=== PATIENT | male | born 1955 | race Caucasian/White ===

== ENCOUNTER 2016-11-21 11:08 | Inpatient (IN) | payer OTHER ==
[2016-11-21 11:33] LABS: #Eosinphils 0.2 thou/uL (0.0-0.7); #Lymphocytes 1.8 thou/uL (1.20-3.40); #Monocytes 0.9 thou/uL (0.11-0.59); #Neutrophils 6.2 thou/uL (1.40-6.50); %Basophils 0.4 % (0.0-1.0); %Eosinophils 2.4 % (0.0-10.0); %Lymphocytes 19.8 % (21.0-51.0); %Monocytes 9.6 % (0.0-10.0); Hematocrit 44.8 % (42.0-52.0); Red Blood Cell (RBC) Count 4.72 mill/uL (4.70-6.10); White Blood Cell (WBC) Count 9.1 thou/uL (4.8-10.8)
--- NOTE | 2016-11-21 11:51 | RAD ---
PORTABLE CHEST ONE VIEW: Date: 11-21-16 Time: 11:10 a.m. History: Shortness of breath, chest pain. FINDINGS: The heart size is borderline. The lungs are expanded without focal areas of consolidation, pneumotho rax, or pleural effusions. IMPRESSION: No radiographic evidence of acute cardiopulmonary process. POS: [facility]
[2016-11-21 11:52] LABS: ALT (SGPT) 64 U/L (8-55); AST (SGOT) 36 U/L (5-34); Alkaline Phosphatase 107 U/L (40-150); Anion Gap 14 mmol/L (10-20); BUN (Urea Nitrogen) 19 mg/dL (8.4-25.7); Bilirubin, Total 0.5 mg/dL (0.2-1.2); CK (CPK) 99 U/L (30-200); Calc. Creatinine Clearance 0 mL/min (70-130); Calcium 9.4 mg/dL (7.8-10.44); Carbon Dioxide 24 mmol/L (23-31); Chloride 107 mmol/L (98-107); Estimated GFR-MDRD 89; Globulin 3.5 g/dL (2.4-3.5); Protein, Total 7.3 g/dL (5.8-8.1)
[2016-11-21 11:57] LABS: Troponin I 0.084 ng/mL (< 0.028)
[2016-11-21] MEDS ORDERED: Acetaminophen 325 MG TAB PO PRN (13:05)
--- NOTE | 2016-11-21 13:23 | HP ---
REASON FOR ADMISSION: Atypical chest pain, rule out ACS. HISTORY OF PRESENTING ILLNESS: The patient gives history of waking up on Sunday morning, not feeling good. He was feeling clammy and slept all through the day. This morning when he woke up, he felt the same way and felt even more weaker, clammy, sweating and was shaky. He got concerned, hence came to emergency room. No complaints of cough or fever. No complaints of urinary frequency or urgency. No complaints of palpitations or PND. The patient states he snores a lot and in fact his has told that he has stopped breathing in between which appears to be apneic spells. PAST MEDICAL AND SURGICAL HISTORY: History of Cpwcqox-Bzlpo-Mzxjk disease with bilateral ankle surgeries done by Dr. Vera, dyslipidemia, not on any medications. CURRENT MEDICATIONS: None. ALLERGIES: Allergic to CODEINE and PENICILLIN. PERSONAL HISTORY: Does not abuse alcohol or drugs. No history of smoking. FAMILY HISTORY: Mother is living and is 91 years old. She has got dyslipidemia. Father of Parkinson's and its complications at the age of 86 years. REVIEW OF SYSTEMS: The following complete review of systems was negative, unless otherwise mentioned in the HPI or below: Constitutional: Weight loss or gain, ability to conduct usual activities. Skin: Rash, itching. Eyes: Double vision, pain. ENT/Mouth: Nose bleeding, neck stiffness, pain, tenderness. Cardiovascular: Palpitations, dyspnea on exertion, orthopnea. Respiratory: Shortness of breath, wheezing, cough, hemoptysis, fever or night sweats. Gastrointestinal: Poor appetite, abdominal pain, heartburn, nausea, vomiting, constipation, or diarrhea. Genitourinary: Urgency, frequency, dysuria, nocturia. Musculoskeletal: Pain, swelling. Neurologic/Psychiatric: Anxiety, depression. Allergy/Immunologic: Skin rash, bleeding tendency. PHYSICAL EXAMINATION: GENERAL: The patient is a 61-year-old male who is currently not in any acute distress. VITAL SIGNS: Blood pressure 160/84 on arrival, pulse 92 per minute, respiratory rate 20 per minute, temperature 98 degrees Fahrenheit, saturating 91 % on room air. NECK: Supple, no elevated JVD. EYES: Extraocular muscles intact. Pupils reacting to light. ORAL CAVITY: Mucous membranes are moist. No exudates or congestion. CARDIOVASCULAR SYSTEM: S1 and S2 heard. Regular rhythm. RESPIRATORY SYSTEM: Air entry 1+ bilateral. No rales, rhonchi or wheezes. ABDOMEN: Soft, bowel sounds heard. No tenderness, rigidity or guarding. EXTREMITIES: No peripheral edema or calf tenderness. VASCULAR SYSTEM: Peripheral pulses 1+ bilateral. No ischemic ulcerations or gangrene. CENTRAL NERVOUS SYSTEM: No gross focal deficits seen. Patient is alert, awake , oriented x3. PSYCHIATRIC SYSTEM: The patient's mood is euthymic. No hallucinations or delusions. X-RAY FINDINGS AND LABORATORY DATA: Chest x-ray done shows no acute cardiopulmonary abnormalities. EKG done shows normal sinus rhythm at 91 beats per minute. There is poor R-wave progression. H\T\H 15 and 44, platelet count is 150, MCV is 95. White count of 9 with 67% neutrophils. Electrolytes are stable. BUN 19, creatinine 0.8, glucose 106, AST 36, ALT 64, alkaline phosphatase 107, troponin I 0.08, CK-MB 2.7, lipase is 30. CLINICAL IMPRESSION AND PLAN: The patient will be under observation on telemetry for atypical chest pain, rule out acute coronary syndrome. Also, his symptoms appear to be likely related to obstructive sleep apnea. He has indeterminate troponin, the first set and we will see the trending of troponin the next 2 sets. If his troponins trend less than 1, we will proceed with a nuclear stress test. We will gently hydrate him with normal saline at 50 mL per hour. The patient will be on aspirin full dose along with a small dose of Lopressor. He will likely need outpatient sleep study. The patient does not have a primary care physician and I have counseled him to see a primary care doctor and get a referral for sleep study. SALO
[2016-11-21 14:05] VITALS: BMI 33.0
[2016-11-21 14:58] LABS: Troponin I 0.077 ng/mL (< 0.028)
[2016-11-21] MEDS: Sodium Chloride 0.9% 1,000 ML IV SCH (16:07)
[2016-11-21 18:08] LABS: Troponin I 0.052 ng/mL (< 0.028)
[2016-11-21] MEDS: Metoprolol Tartrate 25 MG TAB PO SCH (20:53)
[2016-11-22 04:49] LABS: #Eosinphils 0.2 thou/uL (0.0-0.7); #Lymphocytes 1.9 thou/uL (1.20-3.40); #Monocytes 0.7 thou/uL (0.11-0.59); #Neutrophils 4.9 thou/uL (1.40-6.50); %Basophils 0.3 % (0.0-1.0); %Eosinophils 2.4 % (0.0-10.0); %Lymphocytes 24.3 % (21.0-51.0); %Monocytes 9.5 % (0.0-10.0); Hematocrit 42.3 % (42.0-52.0); Mean Platelet Volume 8.2 fL (7.4-10.4); Red Blood Cell (RBC) Count 4.37 mill/uL (4.70-6.10); White Blood Cell (WBC) Count 7.7 thou/uL (4.8-10.8)
[2016-11-22 05:20] LABS: Anion Gap 13 mmol/L (10-20); BUN (Urea Nitrogen) 19 mg/dL (8.4-25.7); Calc. Creatinine Clearance 144 mL/min (70-130); Calcium 9.2 mg/dL (7.8-10.44); Carbon Dioxide 25 mmol/L (23-31); Chloride 106 mmol/L (98-107); Cholesterol 220 mg/dl (< 200 Desired); Estimated GFR-MDRD Greater than 90; LDL Cholesterol, Calculated 169 mg/dL
--- NOTE | 2016-11-22 08:16 | PDOC.PN ---
- Subjective Encounter Start Date: 11/22/16 Encounter Start Time: 08:13 Subjective: Chest pain resolved -: No f/c -: No n/v - Objective Resuscitation Status: Resuscitation Status FULL:Full Resuscitation MAR Reviewed: Yes Vital Signs & Weight: Vital Signs (12 hours) Temp Pulse Resp BP Pulse Ox 11/22/16 07:32 97.4 F L 69 20 122/74 94 L 11/22/16 04:00 98.8 F 82 24 H 130/66 91 L 11/21/16 23:26 97.5 F L 76 20 124/73 91 L 11/21/16 20:55 98.3 F 80 20 Weight Weight 243 lb 6.4 oz I&O: 11/21/16 11/22/16 11/23/16 06:59 06:59 06:59 Intake Total 2104 Balance 2104 Result Diagrams: 11/22/16 04:25 11/22/16 04:25 Phys Exam - Physical Examination Constitutional: NAD HEENT: moist MMs, sclera anicteric Neck: no nodes, no JVD Respiratory: no wheezing, no rales, clear to auscultation bilateral Cardiovascular: RRR, no significant murmur Gastrointestinal: soft, non-tender, positive bowel sounds Neurological: non-focal Psychiatric: normal affect, A&O x 3 Dx/Plan (1) Chest pain Code(s): R07.9 - CHEST PAIN, UNSPECIFIED Status: Acute - Plan Chest pain * Indeterminant cardiac enzyme elevation on first draw (trended down on 2 subsequent draws) * ECHO: EF 50-55%, Mild MR, Severe TR (needs outpt f/u) * check Stress test today * check labs in AM Suspected sleep apnea * will need outpt polysomnogrophy to confirm (will defer to PCP)
[2016-11-22] MEDS ORDERED: ISOVUE-370 76%-LOCM 1 ML ONE (08:29)
--- NOTE | 2016-11-22 11:36 | NM ---
CARDIAC SPECT: CLINICAL HISTORY: 61-year-old male with chest pain, dyslipidemia. TECHNIQUE: A myocardial perfusion scan was performed using the single isotope one day protocol with technetium- 99m sestamibi. 10 mCi were injected intravenously for the rest exam followed by 32 mCi for the stres s exam. Pharmacologic stress with Adenosine was monitored and interpreted by Ena Sandoval NP. FINDINGS: Homogeneous tracer distribution is seen in the myocardial segments on stress and rest images without fixed or reversible defects. GATED SPECT LVEF: 62%. WALL MOTION EXAM: Normal. IMPRESSION: Normal myocardial perfusion scan. POS: [facility]
[2016-11-22 13:28] LABS: Mode NC; Modified Allen's Test NOT DONE; Oxyhemoglobin 86.4 % (94.0-97.0); Sodium 138 mmol/L (135-148); Vent NO
[2016-11-22] MEDS ORDERED: Enoxaparin Sodium 120 MG/0.8 ML SYRINGE SC SCH (14:15)
[2016-11-22] MEDS ORDERED: Sodium Chloride 0.9% 500 ML IV SCH (14:30)
[2016-11-22] MEDS: Aspirin 325 MG TAB PO SCH (14:51)
[2016-11-22] MEDS ORDERED: Enoxaparin Sodium 30 MG/0.3 ML SYRINGE IVP SCH (14:53)
[2016-11-22] MEDS ORDERED: Enoxaparin Sodium 30 MG/0.3 ML SYRINGE ONE (14:53)
--- NOTE | 2016-11-22 14:54 | CT ---
CT BRAIN WITHOUT CONTRAST: HISTORY: Syncope. Altered mental status. Hypotension. FINDINGS: No evidence of acute infarct, hemorrhage, midline shift, or abnormal extraaxial fluid collections ar e seen. The ventricular size is normal, and the basilar cisterns are patent. The bony calvarium is intact. The visualized paranasal sinuses are well aerated. IMPRESSION: No CT evidence of acute intracranial process. POS: [facility]
[2016-11-22] MEDS: Sodium Chloride 0.9% 1,000 ML IV SCH ×3 (14:57→20:30)
[2016-11-22] MEDS: Metoprolol Tartrate 25 MG TAB PO SCH (14:59)
--- NOTE | 2016-11-22 14:59 | CT ---
CT PULMONARY ANGIO WITH CONTRAST: HISTORY: Shortness of breath. Hypotension. Syncope. TECHNIQUE: Multiple axial tomograms obtained through the chest with IV enhancement with pulmonary angio protoco l with multiplanar reconstruction and 3D post processing. FINDINGS: There are extensive bilateral pulmonary emboli. the largest emboli are seen in both main pulmonary outflow tracts. Emboli extend into all levels of both lungs. The lung schuster show some patchy infiltrate in the left upper lobe and also some patchy infiltrate i n the right lower lobe. No effusion. The mediastinum is otherwise unremarkable. Images through th e upper abdomen are unremarkable. IMPRESSION: 1. Extensive bilateral pulmonary emboli. 2. Patchy alveolar infiltrate in the left upper lobe and right lower lobe and, to a lesser degree, in the right upper lobe. These findings were discussed with Dr. Swenson. CODE CR POS: [facility]
--- NOTE | 2016-11-22 15:30 | CON ---
DATE OF CONSULTATION: 11/22/2016 REASON FOR CONSULTATION: Shortness of breath. HISTORY OF PRESENT ILLNESS: I was consulted by the Hospitalist Service to see this patient is a 61- year-old male who has been on the observation unit for rule out CA workup. He apparently had a stre ss test earlier today and was about to go home. He got up to the bathroom, became faint, almost pas sed out, turned zee. I was called by the charge nurse and he was running the code [employer] who reques marla direction. She felt that the patient probably had a pulmonary embolism. The patient was transp orted for CT head and a CT pulmonary angiogram of the chest. CT pulmonary angiogram showed diffuse bilateral pulmonary emboli. The patient was brought to the CCU. He was immediately given 1 mg/kg o f Lovenox subcutaneously, a bolus of 500 mL of normal saline for a blood pressure 91/57, and 100% ox ygen. He is now doing better with a pulse of 93, blood pressure 116/86, and O2 sat of 96% with resp iratory rate of 23. PAST MEDICAL HISTORY: Uxsnnzg-Vtggl-Zuuse disease, hyperlipidemia. 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 ALLERGIES: CODEINE and PENICILLIN. SOCIAL HISTORY: He is a nonsmoker, does not consume alcohol. He works in [employer]. FAMILY MEDICAL HISTORY: Remarkable for a sister who had a pulmonary embolism. Also, father of Parkinson's disease. REVIEW OF SYSTEMS: He has had chest pain. He has had shortness of breath. He has had some tinglin g sensation in his legs. He does not noted any previous trauma to his legs. PHYSICAL EXAMINATION: VITAL SIGNS: Pulse currently 93, blood pressure 116/86, O2 sat 96%, respiratory rate 25. He is res ting comfortably in supine position at this time. HEENT: Pupils react. Sclerae are anicteric. Oropharynx is clear. NECK: Without adenopathy or JVD. CARDIAC: S1, S2 is regular. There is no audible murmur. LUNGS: Clear to auscultation. No wheezing or rhonchi. ABDOMEN: Soft, mildly obese. EXTREMITIES: No clubbing, cyanosis. Fused ankles are noted. LABORATORY DATA: White blood cell count 7.7, hematocrit 42.3, platelet count 138. pH 7.38, pCO2 of 26, pO2 of 53 on nasal cannula 28%. Sodium 139, potassium 4.5, chloride 106, CO2 of 25, BUN 19, cr eatinine 0.8, glucose 115. CT pulmonary angiogram was reviewed. Results are as noted above. Head CT did not show any acute fi ndings. ASSESSMENT: 1. Massive pulmonary embolism with borderline low blood pressure, which was responsive to fluids. 2. History of Hqfgvar-Xbhsu-Rkocs disease. PLAN: There is no immediate contraindication for thrombolysis, if it should be needed. Currently, the patient is hemodynamically stable after fluid bolus and he has received subcutaneous Lovenox and is not having any hypoxemia that is refractory to supplemental oxygen. I told him that would be th e course, we will continue at the current time. However, he understands that he gets worse, we woul d have to intervene with thrombolytics. We discussed the fact that the thrombolytics could cause a stroke, although the odds of that would be very small. The patient will remain in the CCU overnight on strict bed rest. First some anticoagulants have bee n given. He will be put on Protonix for GI prophylaxis. I have spoken to his . Forty-five minutes critical care time was spent with the patient.
--- NOTE | 2016-11-22 23:41 | CON ---
CARDIOLOGY CONSULTATION NOTE DATE OF CONSULTATION: 11/22/2016 INDICATION FOR CONSULTATION: Chest pain and near syncope. HISTORY OF PRESENT ILLNESS: Mr. Tyler is very pleasant 61-year-old gentleman who was admitted t o the hospital through the emergency room yesterday. He had been complaining of some chest tightnes s. He underwent evaluation from a cardiac standpoint and was found to have a negative cardiac study . He had no evidence of ischemia. He then was planning to be discharged, he went to bathroom, he t hought he had a bowel movement. He did have some small amount of diarrhea and became very short of breath and felt weak. He then tried to get up and get back to the bed and almost collapsed. On fur ther evaluation, it is indicated the patient has pulmonary emboli. We were not even asked to see th e patient, I believe prior to them realizing the patient had PEs. He has had no previous cardiac hi story that he is aware of. He denied any chest pains except for the fullness, which he experiences now which most likely is associated with the pulmonary emboli. The emboli are of yet uncertain etio logy. He denied any long trips or any sitting for any length of time in activity and has no history of previous cardiac, pulmonary or pulmonary embolus or malignancies in the past. At this time, he is more comfortable. He is in the Intensive Care Unit and is on oxygen. He has been started on Zaid enox. His heart rate is 91. His vital signs are otherwise stable. O2 saturation is about 98% on 2 liters of oxygen. PAST MEDICAL AND SURGICAL HISTORY: Positive for Cvhxoe-Jrlgs-Adqob syndrome and he has had ankle goodwin rgeries, both by Dr. Vera in the past. Otherwise, he has been very healthy patient. ALLERGIES: PENICILLIN and CODEINE. SOCIAL HISTORY: He is . He works as a [employer]. He has no significant alcohol use. He do es not smoke. FAMILY HISTORY: He does have a sister who had pulmonary embolus, also father had Parkinson disease and multiple members who have had problems with orthopedic problems, most likely associated also wit h Fqyxsyn-Ymhom-Lerbn syndrome. MEDICATIONS: He was on no medications prior to being admitted to the hospital. REVIEW OF SYSTEMS: His 12-point review of systems are unremarkable except for chest fullness and so me shortness of breath. Otherwise, he denies any complaints. PHYSICAL EXAMINATION: GENERAL: Reveals a well-developed, well-nourished gentleman. VITAL SIGNS: Blood pressure is 145/88, heart rate is 89 and shows a sinus rhythm. He is afebrile. Respiratory rate is about 20 per minute, O2 saturations are stable and is noted between 90% to 98%. HEENT: Shows the head to be normocephalic and atraumatic. Carotid pulses are present. There were no bruits noted. There is no JVD. CHEST: Clear to auscultation without rales, rhonchi or wheezing. CARDIOVASCULAR: Exam reveals a regular rate and rhythm at this time with a normal S1 and S2. I can not hear any significant murmurs, heaves, thrills, bruits or rubs. ABDOMEN: Exam shows obesity with positive bowel sounds. No organomegaly or masses are noted. Femo ral pulses are present. EXTREMITIES: Showed no clubbing or cyanosis. He does have some discoloration of the lower extremit ies and also some well-healed surgical incision from the ankle area due to previous surgery. His pu lses are present. NEUROLOGICAL: He appears to be fully intact. I cannot elicit any gross focal motor deficits at th is time. SKIN: Warm and dry. The feet, however, are cool. 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 LABORATORY AND IMAGING DATA: His EKG shows a normal sinus rhythm with no acute changes. Laboratory data shows a hemoglobin of 14.4 with a WBC of 7.7. His blood sugar was 106 and increased up to 115 since he has been admitted. His electrolytes otherwise were stable. Troponin I on admission was 0 .084 then decreased down to 0.07 and then down to 0.05. MBs were negative. Triglycerides are 220. LDL was elevated at 169. The CTA of the chest indicates extensive bilateral pulmonary emboli and h timothy has been started on Lovenox both subcutaneous and he was given IV dose. IMPRESSION AND PLAN: 1. Acute pulmonary embolus of uncertain etiology. He is being dealt with by the electrical prospecting observer. 2. Elevated cholesterol level. We will suggest he start on some type of statins. 3. History of chest discomfort, which most likely is associated with the pulmonary emboli. 4. Lrlhusf-Zftqs-Qorzo syndrome. This also appears to be under good control at this time. We will be more than happy to continue to follow the patient with you, but at this time, his overall cardia c status appears to be stable except for the problem associated with the pulmonary emboli. I would agree with the present management and no further cardiac workup is indicated at this time.
[2016-11-23] MEDS: Enoxaparin Sodium 100 MG/ML SYRINGE SC SCH ×2 (01:25→14:18)
[2016-11-23] MEDS: Enoxaparin Sodium 30 MG/0.3 ML SYRINGE SC SCH ×2 (01:26→14:19)
[2016-11-23] MEDS: Sodium Chloride 0.9% 1,000 ML IV SCH ×3 (05:32→18:53)
[2016-11-23 05:36] LABS: Hematocrit 40.6 % (42.0-52.0); Mean Platelet Volume 9.1 fL (7.4-10.4); Neutrophil 67 % (42-75); Red Blood Cell (RBC) Count 4.18 mill/uL (4.70-6.10); White Blood Cell (WBC) Count 7.8 thou/uL (4.8-10.8)
[2016-11-23 05:50] LABS: BUN (Urea Nitrogen) 17 mg/dL (8.4-25.7); Calc. Creatinine Clearance 166 mL/min (70-130); Calcium 8.8 mg/dL (7.8-10.44); Chloride 108 mmol/L (98-107); Estimated GFR-MDRD Greater than 90; Magnesium 2.2 mg/dL (1.6-2.6)
[2016-11-23 05:57] LABS: Anion Gap 14 mmol/L (10-20)
[2016-11-23 05:58] LABS: Carbon Dioxide 22 mmol/L (23-31)
--- NOTE | 2016-11-23 07:56 | PRG ---
DATE OF SERVICE: 11/23/2016 Thirty minutes critical care time. The patient feels better today. He is still quite hypoxic requiring 5 liters O2 to maintain sats 93 %. PHYSICAL EXAMINATION: VITAL SIGNS: Pulse is 82, blood pressure 112/60, temperature 98.7, total intake for 24 hours, 2269, output 725. HEENT: Unremarkable. NECK: No JVD. CHEST: Clear without wheezing. CARDIAC: S1 and S2 regular. ABDOMEN: Soft. EXTREMITIES: No edema. LABORATORY DATA: Sodium 139, potassium 4.9, chloride 108, CO2 20, BUN 17, creatinine 0.8, glucose 1 07, white blood cell count 7.8, hematocrit 40.6, platelet count 137. ASSESSMENT: Massive pulmonary embolism. PLAN: 1. Transfer to Intermediate Care if we can find a bed. 2. Continue Lovenox for today with conversion to Xarelto or Eliquis tomorrow. 3. Up into a chair today. 4. Check Doppler scan of the lower extremities to evaluate for DVT.
--- NOTE | 2016-11-23 08:59 | PDOC.PN ---
- Subjective Encounter Start Date: 11/23/16 Encounter Start Time: 08:58 Subjective: SOB stable -: CP controlled -: No f/c - Objective Resuscitation Status: Resuscitation Status FULL:Full Resuscitation MAR Reviewed: Yes Vital Signs & Weight: Vital Signs (12 hours) Temp 11/23/16 04:00 98.7 F 11/23/16 02:00 98.3 F 11/23/16 00:00 97.8 F Weight Weight 286 lb 9.615 oz Most Recent Monitor Data Heart Rate from ECG 82 NIBP 112/67 NIBP BP-Mean 91 Respiration from ECG 22 SpO2 92 I&O: 11/22/16 11/23/16 11/24/16 06:59 06:59 06:59 Intake Total 2105 2269 Output Total 725 Balance 2105 1544 Result Diagrams: 11/23/16 04:36 11/23/16 04:36 Additional Labs: Accuchecks 11/22/16 13:22 POC Glucose 135 H Phys Exam - Physical Examination Constitutional: NAD HEENT: moist MMs, sclera anicteric Neck: no nodes, no JVD Respiratory: no wheezing, no rhonchi Cardiovascular: no significant murmur, no rub Gastrointestinal: soft, non-tender, positive bowel sounds Neurological: non-focal Psychiatric: normal affect, A&O x 3 Dx/Plan (1) Chest pain Code(s): R07.9 - CHEST PAIN, UNSPECIFIED Status: Acute - Plan Chest pain 2/2 Massive Pulmonary Embolism * Indeterminant cardiac enzyme elevation on first draw (trended down on 2 subsequent draws) * ECHO: EF 50-55%, Mild MR, Severe TR (needs outpt f/u) * Negative Stress test * apprecaite pulm input - continue anticoagulation * appreciate cardiology input * check labs in AM Suspected sleep apnea * will need outpt polysomnogrophy to confirm (will defer to PCP)
[2016-11-23] MEDS: Aspirin 325 MG TAB PO SCH (09:04)
--- NOTE | 2016-11-23 11:19 | ULT ---
BILATERAL LOWER EXTREMITY VENOUS DOPPLER ULTRASOUND EVALUATION: HISTORY: Massive pulmonary emboli. FINDINGS: Right and left lower extremity venous Doppler ultrasound evaluation is obtained using a Multihertz l inear ray transducer. Real-time, color flow, and spectral waveform Doppler analysis demonstrates ec hogenic clot seen in the right and left popliteal veins. These appear to be noncompressible. Findi ngs compatible with acute bilateral popliteal clot. The right and left common femoral and superfici al femoral veins are patent. Right and left femora profunda are patent. There is flow seen in the posterior tibial veins bilaterally. Flow is also seen in the right and left greater saphenous veins. IMPRESSION: Acute noncompressible clot in the right and left popliteal veins. POS: [facility]
--- NOTE | 2016-11-23 14:08 | PQF ---
CLINICAL DOCUMENTATION IMPROVEMENT CLARIFICATION FORM: ICD-10 Updated PLEASE DO AN ADDENDUM TO THE PROGRESS NOTE WITH ANY DOCUMENTATION UPDATES OR ADDITIONS AND CARRY THROUGH TO DC SUMMARY. THANK YOU. DATE: 11/22/16 ATTN: DR. LERMA The following CLINICAL INDICATORS - SIGNS / SYMPTOMS are present in the medical record: PULMONARY NOTE 11/23: "HE IS STILL QUITE HYPOXIC REQUIRING 5 LITERS O1 TO MAINTAIN SATS 93%" RR 29 PO2 ON ABG 53.7 RISKS: MASSIVE PULMONARY EMBOLISM TREATMENT: SUPPLEMENTAL OXYGEN CRITICAL CARE MONITORING PULMONARY CONSULT ABGS Please provide a response below if a more specific term indicating a diagnosis and/or acuity level for this condition can be identified. Please exercise your independent, professional judgment in responding to the clarification form. Clinical indicators are provided on the bottom of this form for your review. [x ] Acute Respiratory Failure: [ x ] with Hypoxia[ ] with Hypercapnia [ ] Acute On Chronic Respiratory Failure: [ ] with Hypoxia [ ] with Hypercapnia [ ] Acute Respiratory Failure caused by: (etiology) [ ] Acute Respiratory Insufficiency following [ ] trauma [ ] other [ ] Chronic Respiratory Failure only [ ] Does not apply to this patient [ ] Unable to determine [ ] Other diagnosis: (This form is maintained as a part of the permanent medical record) 2014 [employer]. All Rights Reserved KRISTA [email or web address] Office: [phone] SALO
[2016-11-23 14:41] LABS: Anion Gap 13 mmol/L (10-20); BUN (Urea Nitrogen) 19 mg/dL (8.4-25.7); Calc. Creatinine Clearance 168 mL/min (70-130); Calcium 9.1 mg/dL (7.8-10.44); Carbon Dioxide 26 mmol/L (23-31); Chloride 107 mmol/L (98-107); Estimated GFR-MDRD Greater than 90
--- NOTE | 2016-11-23 17:26 | PDOC.CTH ---
Cardiology Progress Note - Subjective Pt. seen and evaluated. no complaints. Oxygen sats. drop to the 70's when he is sleeping. Sleep apnea appears likely. he denies any cardiac complaints. - Objective Vital Signs Temp Pulse Resp Pulse Ox 11/23/16 08:00 98.7 F 84 29 H 98 Weight 286 lb 9.615 oz 11/22/16 11/23/16 11/24/16 06:59 06:59 06:59 Intake Total 2105 2269 360 Output Total 725 460 Balance 2105 1544 -100 - Physical Examination General/Neuro: alert & oriented x3 Neck: carotid US brisk Lungs: CTA, unlabored respirations Heart: RRR Abdomen: no HSM, NT/ND - Labs Result Diagrams: 11/23/16 04:36 11/23/16 14:13 Troponin/CKMB CK-MB (CK-2) 2.7 ng/mL (0-6.6) 11/21/16 11:16 Troponin I 0.052 ng/mL (< 0.028) H 11/21/16 17:29 - Assessment/Plan 1. Massive bilat. pulmonary emboli. On lovenox. Plan to transitioon to [facility] tomorrow. 2. Chest discomfort yesterday was likely due to the PE. Negative stress test. Overall cardiac function is normal, I will sign off.If any cardiac changes please page me again. Review of Systems - Review of Systems Respiratory: reports: shortness of breath, SOB with excertion Cardiac (ROS): reports: no symptoms reported ABD/GI: reports: no symptoms reported : reports: no symptoms reported Musculoskeletal: reports: no symptoms reported Neurological: reports: no symptoms reported
[2016-11-24 04:23] LABS: #Eosinphils 0.1 thou/uL (0.0-0.7); #Lymphocytes 1.8 thou/uL (1.20-3.40); #Monocytes 0.7 thou/uL (0.11-0.59); #Neutrophils 3.8 thou/uL (1.40-6.50); %Basophils 0.5 % (0.0-1.0); %Eosinophils 1.5 % (0.0-10.0); %Lymphocytes 27.8 % (21.0-51.0); %Monocytes 10.2 % (0.0-10.0); Hematocrit 39.9 % (42.0-52.0); Mean Platelet Volume 8.4 fL (7.4-10.4); White Blood Cell (WBC) Count 6.4 thou/uL (4.8-10.8)
[2016-11-24 04:38] LABS: Anion Gap 11 mmol/L (10-20); BUN (Urea Nitrogen) 20 mg/dL (8.4-25.7); Calc. Creatinine Clearance 166 mL/min (70-130); Calcium 8.7 mg/dL (7.8-10.44); Carbon Dioxide 26 mmol/L (23-31); Chloride 106 mmol/L (98-107); Estimated GFR-MDRD Greater than 90
[2016-11-24] MEDS ORDERED: Enoxaparin Sodium 30 MG/0.3 ML SYRINGE SC SCH (06:00)
[2016-11-24] MEDS ORDERED: Enoxaparin Sodium 100 MG/ML SYRINGE SC SCH (06:00)
--- NOTE | 2016-11-24 08:36 | PDOC.PN ---
- Subjective Encounter Start Date: 11/24/16 Encounter Start Time: 08:35 Subjective: No overnight issues -: no fevers this AM -: no agitation - Objective Resuscitation Status: Resuscitation Status FULL:Full Resuscitation MAR Reviewed: Yes Vital Signs & Weight: Vital Signs (12 hours) Temp 11/24/16 08:00 98.0 F 11/24/16 04:00 97.8 F 11/24/16 00:00 97.6 F Weight Weight 286 lb 9.615 oz Most Recent Monitor Data Heart Rate from ECG 76 NIBP 173/99 NIBP BP-Mean 105 Respiration from ECG 25 SpO2 90 I&O: 11/23/16 11/24/16 11/25/16 06:59 06:59 06:59 Intake Total 2269 1793 234 Output Total 725 1690 Balance 1544 103 234 Result Diagrams: 11/24/16 03:53 11/24/16 03:53 Phys Exam - Physical Examination Constitutional: NAD HEENT: moist MMs, sclera anicteric Neck: no nodes, no JVD Respiratory: no rales, no rhonchi Cardiovascular: no significant murmur, no rub Gastrointestinal: soft, non-tender, positive bowel sounds Lymphatic: no nodes Skin: normal turgor, cap refill <2 seconds Dx/Plan (1) Chest pain Code(s): R07.9 - CHEST PAIN, UNSPECIFIED Status: Acute - Plan Chest pain 2/2 Massive Pulmonary Embolism * Indeterminant cardiac enzyme elevation on first draw (trended down on 2 subsequent draws) * ECHO: EF 50-55%, Mild MR, Severe TR (needs outpt f/u) * Negative Stress test * apprecaite pulm input - continue anticoagulation with lovenox * appreciate cardiology input * check labs in AM Suspected sleep apnea * will need outpt polysomnogrophy to confirm (will defer to PCP)
--- NOTE | 2016-11-24 08:37 | PRG ---
DATE OF SERVICE: 11/24/2016 He is feeling much better. He is up in a chair today, eating breakfast. PHYSICAL EXAMINATION: VITAL SIGNS: On exam his temperature is 97.8, pulse 63, blood pressure 163/86. 24 hour intake 1793 , output 1690. HEENT: Unremarkable. NECK: No JVD. CHEST: Clear. CARDIAC: S1, S2 regular. ABDOMEN: Soft. EXTREMITIES: No edema. LABORATORY DATA: White blood cell count 6.4, hematocrit 39.9, platelet count 136. Sodium 138, pota ssium 4.6, chloride 106, CO2 26, BUN 20, creatinine 0.8, glucose 99. ASSESSMENT: 1. Pulmonary embolism. 2. Deep venous thrombosis. PLAN: The patient will be switched to Eliquis tonight and he will continue the high dose for anothe r 7 days before being switched 5 mg b.i.d. for the next 6 months. He may require indefinite anticoa gulation since there do not seem to be any inherent risks for him to developed any DVT in the pulmon gwen emboli. He needs to remain on the oxygen for another day or two, but he can start to ambulate w ith oxygen. The threshold for discharge will be need for oxygen.
[2016-11-24] MEDS: Aspirin 325 MG TAB PO SCH (09:20)
[2016-11-24] MEDS: Apixaban 5 MG TAB PO SCH (18:17)
[2016-11-24] MEDS ORDERED: Simethicone Chewable 80 MG TAB PO PRN (22:48)
[2016-11-25 05:29] LABS: #Eosinphils 0.1 thou/uL (0.0-0.7); #Lymphocytes 1.4 thou/uL (1.20-3.40); #Monocytes 0.6 thou/uL (0.11-0.59); #Neutrophils 4.6 thou/uL (1.40-6.50); %Basophils 0.4 % (0.0-1.0); %Eosinophils 1.5 % (0.0-10.0); %Lymphocytes 20.9 % (21.0-51.0); %Monocytes 8.8 % (0.0-10.0); Hematocrit 40.1 % (42.0-52.0); Mean Platelet Volume 8.7 fL (7.4-10.4); Red Blood Cell (RBC) Count 4.17 mill/uL (4.70-6.10); White Blood Cell (WBC) Count 6.8 thou/uL (4.8-10.8)
[2016-11-25 05:49] LABS: Anion Gap 12 mmol/L (10-20); BUN (Urea Nitrogen) 17 mg/dL (8.4-25.7); Calc. Creatinine Clearance 178 mL/min (70-130); Calcium 8.7 mg/dL (7.8-10.44); Carbon Dioxide 25 mmol/L (23-31); Chloride 104 mmol/L (98-107); Estimated GFR-MDRD Greater than 90
[2016-11-25] MEDS: Apixaban 5 MG TAB PO SCH ×2 (06:06→17:47)
[2016-11-25] MEDS: Aspirin 325 MG TAB PO SCH (11:13)
--- NOTE | 2016-11-25 13:17 | PDOC.PN ---
- Subjective Encounter Start Date: 11/25/16 Encounter Start Time: 13:15 Patient seen and examined, states he is feeling better, still has some swelling in his legs but otherwise no new issues, at bedside, all questions answered. - Objective Resuscitation Status: Resuscitation Status FULL:Full Resuscitation Vital Signs & Weight: Vital Signs (12 hours) Temp Pulse Resp BP BP Pulse Ox 11/25/16 11:10 97.5 F L 58 L 20 160/77 H 95 11/25/16 04:38 70 186/97 H 11/25/16 04:35 93 L 11/25/16 03:28 97.4 F L 70 20 186/97 H 93 L Weight Weight 288 lb Most Recent Monitor Data Heart Rate from ECG 75 NIBP 151/82 NIBP BP-Mean 116 Respiration from ECG 23 SpO2 90 I&O: 11/24/16 11/25/16 11/26/16 06:59 06:59 06:59 Intake Total 1793 1268 Output Total 1690 1190 Balance 103 78 Result Diagrams: 11/25/16 04:25 11/25/16 04:25 Phys Exam - Physical Examination Constitutional: NAD sitting up eating lunch HEENT: PERRLA, moist MMs, sclera anicteric Neck: no nodes, no JVD, supple Respiratory: no wheezing, no rales increased AP diameter Cardiovascular: RRR, no significant murmur Gastrointestinal: soft, non-tender, no distention Musculoskeletal: pulses present, edema present (1+ pitting B/L LE) Neurological: normal sensation, moves all 4 limbs Psychiatric: normal affect, A&O x 3 Skin: no rash, normal turgor Dx/Plan (1) DVT (deep venous thrombosis) Code(s): I82.409 - ACUTE EMBOLISM AND THOMBOS UNSP DEEP VN UNSP LOWER EXTREMITY Status: Acute (2) Pulmonary embolism Code(s): I26.99 - OTHER PULMONARY EMBOLISM WITHOUT ACUTE COR PULMONALE Status : Acute (3) Chest pain Code(s): R07.9 - CHEST PAIN, UNSPECIFIED Status: Acute - Plan * Continue anticoagulation for now * Patient will need hypercoagulable work up out patient, requested to follow up with a aquatic physiotherapist at point in time of discharge * vital signs stable, patient symptomatically doing better but remains with lower extremity edema * discharge planning in AM if patient's condition continues to improve and ok with subspecialists * weight loss advised * case and plan d/w patient and at length, they understand and agree with this plan
--- NOTE | 2016-11-25 14:34 | PRG ---
DATE OF SERVICE: 11/25/2016 SUBJECTIVE: This morning, he is better, less short of breath. OBJECTIVE: VITAL SIGNS: Sats are 99% on room air, pulse 50, temperature 97, blood pressure 160/70. CHEST: Chest reveals decreased breath sounds, no wheezing. CARDIAC: Normal S1, S2. No gallops. ABDOMEN: Soft, no masses. LABORATORY DATA: White count 6000, H\T\H is 13 and 40, platelet count is normal. IMPRESSION: Pulmonary embolism. PLAN: He is stable on Eliquis 10 mg twice a day. Continue PT and supportive care.
--- NOTE | 2016-11-25 16:57 | EKG ---
Test Reason : Blood Pressure : / mmHG Vent. Rate : 091 BPM Atrial Rate : 091 BPM P-R Int : 152 ms QRS Dur : 094 ms QT Int : 358 ms P-R-T Axes : 054 078 030 degrees QTc Int : 440 ms Normal sinus rhythm Normal ECG Confirmed by ZANDER CARVER, CECELIA Cardenas ([id number]), non linear editor ROBYN GARY ([id number]) on 11/25/2016 4:56:29 PM Referred By: Confirmed By:CECELIA FERMIN MD
[2016-11-26 05:02] LABS: #Eosinphils 0.1 thou/uL (0.0-0.7); #Lymphocytes 1.4 thou/uL (1.20-3.40); #Monocytes 0.6 thou/uL (0.11-0.59); #Neutrophils 3.7 thou/uL (1.40-6.50); %Basophils 0.3 % (0.0-1.0); %Eosinophils 2.1 % (0.0-10.0); %Lymphocytes 23.6 % (21.0-51.0); %Monocytes 10.9 % (0.0-10.0); Hematocrit 42.2 % (42.0-52.0); Mean Platelet Volume 8.2 fL (7.4-10.4); Red Blood Cell (RBC) Count 4.39 mill/uL (4.70-6.10); White Blood Cell (WBC) Count 5.9 thou/uL (4.8-10.8)
[2016-11-26 05:10] LABS: Anion Gap 10 mmol/L (10-20); BUN (Urea Nitrogen) 14 mg/dL (8.4-25.7); Calc. Creatinine Clearance 168 mL/min (70-130); Calcium 9.2 mg/dL (7.8-10.44); Carbon Dioxide 28 mmol/L (23-31); Chloride 106 mmol/L (98-107); Estimated GFR-MDRD Greater than 90; Magnesium 2.3 mg/dL (1.6-2.6)
[2016-11-26] MEDS: Apixaban 5 MG TAB PO SCH (05:51)
[2016-11-26] MEDS: Aspirin 325 MG TAB PO SCH (09:48)
[2016-11-26 11:58] VITALS: BP 159/81; TEMP 97.5
--- NOTE | 2016-11-26 12:07 | DIS ---
DATE OF ADMISSION: 11/21/2016 DATE OF DISCHARGE: 11/26/2016 ADMITTING DIAGNOSES: Chest pain and shortness of breath. DISCHARGE DIAGNOSES: Chest pain secondary to pulmonary embolism with deep venous thrombosis. Short ness of breath, improved. HOSPITAL COURSE: This is a 61-year-old male admitted to Internal Medicine team, had a diagnosis of chest pain at the time of admission. A CT of the chest showed bilateral large pulmonary emboli. Th e patient had an echocardiogram performed as well as one with bubble study, followed by Cardiology. The patient was put in place in the ICU, started on anticoagulation. The patient was transitioned over to Eliquis and was observed for 48 hours, symptomatically improving, able to tolerate diet. De nied any nausea, vomiting, diarrhea, constipation, chest pain, fevers, or shortness of breath at [facility] nt in time of discharge. DISPOSITION: Discharged home. FOLLOWUP: Follow up with PCP and Cardiology within 7 to 10 days. DIET: Heart healthy diet. ACTIVITY: As tolerated. MEDICATIONS: Eliquis 10 mg p.o. q.12 hours for 7 days and then switch to 5 mg daily. CONDITION: Stable. The patient also advised to pursue weight loss. Case and plan discussed with yohannes gomez at length. He understands and agrees with this plan.
--- NOTE | 2016-11-26 17:15 | PRG ---
DATE OF SERVICE: 11/26/2016 SUBJECTIVE: A morbidly obese gentleman with BMI 39. He states he is doing better, less short of br eath, less coughing. PHYSICAL EXAMINATION: VITAL SIGNS: Sats are 93%, temperature 97, blood pressure 140/82. CHEST: No wheezing. CARDIAC: Normal S1, S2, no gallops. ABDOMEN: Soft, no masses. LABORATORY DATA: White count 5.9. Electrolytes are normal. IMPRESSION: Pulmonary embolism, deep venous thrombosis. PLAN: He is on Eliquis. Probably, he may have sleep apnea. He is going to be follow up with Dr. Saran farah.
== END 2016-11-26 13:16 | disposition home or self-care (01) | DRG 175 ==
LOC: ERS 11:08 → OBSVTOIN 12:46 → 2SW 12:46 → CCU 11-22 14:08 → 2NO 11-24 10:36
PROVIDERS: ADMIT Internal Medicine; ATTEND Internal Medicine
DX: I26.99 Other pulmonary embolism without acute cor pulmonale (principal); J96.01 Acute respiratory failure with hypoxia; I82.433 Acute embolism and thrombosis of popliteal vein, bilateral; E78.5 Hyperlipidemia, unspecified; Z88.0 Allergy status to penicillin; Z88.5 Allergy status to narcotic agent; G47.33 Obstructive sleep apnea (adult) (pediatric); E66.01 Morbid (severe) obesity due to excess calories; Z68.39 Body mass index [BMI] 39.0-39.9, adult; G60.0 Hereditary motor and sensory neuropathy
CPT/HCPCS: 36415; 36416; 70450; 71010; 71275; 78452; 80048; 80053; 80061; 82553; 82805; 83690; 83735; 84484; 85025; 93005; 93017; 93306; 93970; 94760; A4216; A9500; J0153; J0360; J1650

== ENCOUNTER 2017-01-15 19:00 | Outpatient (CLI) | payer OTHER | END 2017-01-15 19:01 | disposition home or self-care (01) | LOC: SLEEPLAB 19:00 | PROVIDERS: ATTEND Internal Medicine Critical Care Medicine | DX: G47.33 Obstructive sleep apnea (adult) (pediatric) (principal); G47.31 Primary central sleep apnea; R09.02 Hypoxemia; R06.83 Snoring | CPT/HCPCS: 95806 ==

== ENCOUNTER 2017-02-22 19:30 | Outpatient (CLI) | payer OTHER | END 2017-02-22 19:31 | disposition home or self-care (01) | LOC: SLEEPLAB 19:30 | PROVIDERS: ATTEND Internal Medicine Critical Care Medicine | DX: G47.33 Obstructive sleep apnea (adult) (pediatric) (principal); R53.83 Other fatigue; E66.9 Obesity, unspecified | CPT/HCPCS: 95811 ==

== ENCOUNTER 2017-05-23 22:56 | Observation (INO) | payer MEDICARE, OTHER ==
[2017-05-23] MEDS ORDERED: methylPREDNISolone Sod Succ/PF 125 MG/2 ML VIAL ONE (23:31)
[2017-05-24] MEDS ORDERED: Ondansetron ODT 4 MG TAB SL PRN (02:22)
[2017-05-24] MEDS ORDERED: Ondansetron HCl/PF 4 MG/2 ML Vial IVP PRN (02:22)
[2017-05-24] MEDS ORDERED: Acetaminophen 325 MG TAB PO PRN (02:22)
[2017-05-24] MEDS ORDERED: cefTRIAXone\\ROCEPHIN 2 GM in Sodium Chloride 0.9% 100 ML IVPB SCH ×2 (03:00→09:00)
[2017-05-24 04:20] VITALS: BMI 38.9
--- NOTE | 2017-05-24 12:08 | SS ---
CHIEF COMPLAINT: Shortness of breath. 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 DATE OF DISCHARGE: 05/24/2017 TIME OF DISCHARGE: 11:31 ADMITTING DIAGNOSIS: Atypical pneumonia. DISCHARGE DIAGNOSIS: Atypical pneumonia. SECONDARY DIAGNOSIS: Chronic pulmonary embolism on anticoagulation. HISTORY OF PRESENT ILLNESS AND HOSPITAL COURSE: In brief, this is a 61-year-old morbidly obese white male with a known history of chronic PE that initially diagnosed in 11/2016 with massive PE, bilater al PE and was started on Eliquis. Patient has been closely followed up with his primary care physici an. Patient was noticing some worsening shortness of breath and cough and congestion for the past 1 week. So he did not want to take any chance and he went to [facility] where he was transferred to [facility] as there were no records available for the patient and having ceci sahni's history of pulmonary embolism during the last admission, he was referred back to [facility]. Patient was admitted and based on the CT scan, patient had a right upper lobe pneumonia and also left upper lobe infiltrates. The patient was stable and was able to breathe on room air. He re quired some nebulizer treatments, IV antibiotics and Rocephin was started. The patient remained very stable and was able to walk without any shortness of breath and it was decided to discharge the opal ent home. The patient agreed with the plan. The patient was discharged home on oral antibiotics. T he patient was stable on the day of discharge. PHYSICAL EXAMINATION: VITAL SIGNS: Blood pressure on the time of admission was 126/56, saturation of 94%, respirations 20- 22. Vitals on the time of discharge; blood pressure 130/62, heart rate was 77, oxygen was 96% on prema m air and respiration was 18. HEENT: Atraumatic, normocephalic. PERRLA. Extraocular movements were intact. CARDIOVASCULAR SYSTEM: S1, S2 normal. No murmurs, rubs or gallops. LUNGS: Bilateral air entry was equal. No wheezing, no crackles. ABDOMEN: Soft and nontender. No guarding or rebound tenderness. Bowel sounds normal. MUSCULOSKELETAL: No calf tenderness. No pedal edema. No joint tenderness. No joint swelling. HOME MEDICATIONS: Eliquis 5 mg p.o. daily and aspirin 325 mg p.o. daily. New medications are Omnicef 300 mg p.o. b.i.d. and azithromycin 500 mg p.o. daily. Continue for 7 mo re days and patient was also given Mucinex 600 mg twice a day. DISCHARGE INSTRUCTIONS: Continue activity as tolerated. Advised to follow up with primary care phys ician in 1-2 weeks. Advised to complete a course of antibiotics. I spent 35 minutes with this patient on the day of discharge and spent another 35 minutes. We are ad mitting this patient. A total of 65 minutes were spent on the patient from the day patient was admit marla and discharged.
[2017-05-24 12:14] VITALS: BP 136/76; TEMP 98.1
== END 2017-05-24 12:09 | disposition home or self-care (01) ==
LOC: ERS 22:56 → 2SW 05-24 01:48
PROVIDERS: ADMIT Internal Medicine Infectious Disease; ATTEND Internal Medicine Infectious Disease
DX: J18.9 Pneumonia, unspecified organism (principal); I27.82 Chronic pulmonary embolism; E66.01 Morbid (severe) obesity due to excess calories; Z68.38 Body mass index [BMI] 38.0-38.9, adult; Z79.01 Long term (current) use of anticoagulants; Z79.82 Long term (current) use of aspirin; Z88.5 Allergy status to narcotic agent
CPT/HCPCS: 93005; 94640; 99285; G0378; J0696; J2930; J7050; J7620